=== PATIENT | male | born 1985 | race African-American/Black ===

== ENCOUNTER 2017-10-08 10:59 | Emergency (ER) | payer BC, OTHER ==
[~2017-10-08] VITALS: Ht 182.9 cm; Wt 87.3 kg
[2017-10-08 11:11] VITALS: BP 100/54
== END 2017-10-08 13:10 | disposition home or self-care (01) ==
LOC: ER 13:02
DX: H00.016 Hordeolum externum left eye, unspecified eyelid (principal)
CPT/HCPCS: 99283